=== PATIENT | male | born 1970 | race Caucasian/White ===

== ENCOUNTER 2017-07-14 03:12 | Emergency (ER) | payer SELFPAY ==
[~2017-07-14] VITALS: Ht 175.3 cm; Wt 101.2 kg
[~2017-07-14 03:12] MED LIST: ACYCLOVIR800 MG PO; AUGMENTIN 875-1 EACH PO; CLARITIN10 MG PO; CLINDAMYCIN HC300 MG PO; HYDROCODON-ACE1 EA11 PO; IBUPROFEN200 MG PO; NEURONTIN300 MG PO; NORCO 5-325 TA1 EACH PO
[2017-07-14] MEDS ORDERED: TAMIFLU75 MG PO (04:32)
[2017-07-14] MEDS ORDERED: NORCO 5-325 TA1 EACH PO (04:34)
== END 2017-07-14 04:45 | disposition home or self-care (01) ==
LOC: ED 03:12
DX: J11.1 Influenza due to unidentified influenza virus with other respiratory manifestations (principal); F17.200 Nicotine dependence, unspecified, uncomplicated
CPT/HCPCS: 99283

== ENCOUNTER 2021-02-16 20:19 | Emergency (ER) | payer OTHER ==
[~2021-02-16] VITALS: Ht 177.8 cm; Wt 99.3 kg
[~2021-02-16 20:19] MED LIST changes: +KEFLEX500 MG PO; +TAMIFLU75 MG PO
== END 2021-02-16 21:10 | disposition home or self-care (01) ==
LOC: ED 20:19
DX: J30.2 Other seasonal allergic rhinitis (principal); H05.229 Edema of unspecified orbit; F17.200 Nicotine dependence, unspecified, uncomplicated
CPT/HCPCS: 96372; 99284; J1100; Q0163

== ENCOUNTER 2022-05-14 04:52 | Emergency (ER) | payer OTHER ==
[~2022-05-14] VITALS: Ht 177.8 cm; Wt 119.6 kg
[2022-05-14] MEDS ORDERED: CLINDAMYCIN HC300 MG PO (06:28)
[2022-05-14] MEDS ORDERED: AMOX TR-K CLV1 EAC1 PO (08:01)
== END 2022-05-14 08:24 | disposition home or self-care (01) ==
LOC: ED 04:52
DX: J36 Peritonsillar abscess (principal); F17.200 Nicotine dependence, unspecified, uncomplicated
CPT/HCPCS: 10060; 36415; 70491; 80053; 85025; 99283-25; J0295; J1100; Q9967

== ENCOUNTER 2022-09-16 19:57 | Emergency (ER) | payer OTHER ==
[~2022-09-16] VITALS: Ht 177.8 cm; Wt 119.0 kg
[~2022-09-16 19:57] MED LIST changes: +AMOX TR-K CLV1 EAC1 PO
[2022-09-16 20:36] VITALS: BP 161/98
== END 2022-09-16 20:37 | disposition home or self-care (01) ==
LOC: ED 19:57
DX: J02.9 Acute pharyngitis, unspecified (principal); U07.1 COVID-19; F17.200 Nicotine dependence, unspecified, uncomplicated; Z79.899 Other long term (current) drug therapy
CPT/HCPCS: 99282

== ENCOUNTER 2022-10-15 08:28 | Emergency (ER) | payer OTHER ==
[~2022-10-15] VITALS: Ht 177.8 cm; Wt 120.1 kg
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
[2022-10-15 09:49] VITALS: BP 138/101
--- NOTE | 2022-10-15 18:23 | EKG ---
[facility] [address] [place] [address] Signed Normal sinus rhythm Nonspecific T wave abnormality Abnormal ECG No previous ECGs available Confirmed by Derrick Mascorro MD () on 10/15/2022 6:23:17 PM Electronically Signed By: DERRICK MASCORRO MD 10/15/221822 PATIENT NAME: MEGAN POOLE Electrocardiogram DATE OF : 70 PHYSICIAN: DERRICK MASCORRO MD REPORT #: [id number] REPORT IS CONFIDENTIAL AND NOT TO BE RELEASED WITHOUT AUTHORIZATION
== END 2022-10-15 09:46 | disposition home or self-care (01) ==
LOC: ED 08:28
DX: S22.32XA Fracture of one rib, left side, initial encounter for closed fracture (principal); V86.95XA Unspecified occupant of 3- or 4- wheeled all-terrain vehicle (ATV) injured in nontraffic accident, initial encounter; F17.200 Nicotine dependence, unspecified, uncomplicated; Z79.899 Other long term (current) drug therapy
CPT/HCPCS: 71101; 93005; 93010; 99284-25; 99406

== ENCOUNTER 2023-04-11 09:42 | Emergency (ER) | payer OTHER ==
[~2023-04-11] VITALS: Ht 177.8 cm; Wt 110.4 kg
[2023-04-11 10:53] VITALS: BP 165/116
== END 2023-04-11 10:54 | disposition home or self-care (01) ==
LOC: ED 09:42
DX: R42 Dizziness and giddiness (principal); F17.200 Nicotine dependence, unspecified, uncomplicated
CPT/HCPCS: 99283